=== PATIENT | male | born 1990 | race Caucasian/White ===

== ENCOUNTER 2019-06-01 09:32 | Emergency (ER) | payer SELFPAY ==
[2019-06-01] MEDS ORDERED: Fluorescein Sodium TOPICAL* 1 MG TEST STRIP OPHTHALMIC ONE (09:50)
[2019-06-01] MEDS ORDERED: Tetracaine 0.5% OPTH.SOL 4 ML* 1 DROP BTL BOTH EYES ONE (09:50)
--- NOTE | 2019-06-01 09:59 | UC ---
Eye Complaint HPI - HPI Summary HPI Summary: 29 yo male presents with LEFT eye injury. He tells me that on 05/28 while at work he was hit in the left eye by a low hanging tree branch. Had immediate blurry vision and later noticed dark red blood encompassing his entire iris. The hyphema resolved yesterday, but he continues to have blurry vision and a left sided headache with photophobia. He does not wear glasses or contacts. No double vision or pain with eye movement. - History of Current Complaint Stated Complaint: EYE INJURY Time Seen by Provider: 06/01/19 09:58 Hx Obtained From: Patient Onset/Duration: Sudden Onset Severity Initially: Moderate Severity Currently: Moderate Pain Intensity: 7 Pain Scale Used: 0-10 Numeric - Allergies/Home Medications Allergies/Adverse Reactions: Allergies Allergy/AdvReac Type Severity Reaction Status Date / Time No Known Allergies Allergy Verified 06/01/19 09:55 PMH/Surg Hx/FS Hx/Imm Hx - Additional Past Medical History Additional PMH: None - Surgical History Surgical History: None - Family History Known Family History: Positive: None Family History: R & n/C - Social History Lives: With Family Alcohol Use: None Substance Use Type: Heroin Smoking Status (MU): Never Smoked Tobacco Review of Systems All Other Systems Reviewed And Are Negative: No Constitutional: Positive: Negative Skin: Positive: Negative Eyes: Positive: Blurred Vision, Photophobia, Other - left eye pain Respiratory: Positive: Negative Cardiovascular: Positive: Negative Neurological: Positive: Negative Psychological: Positive: Negative Physical Exam - Summary Physical Exam Summary: GENERAL: WDWN. No pain distress. SKIN: No rashes, sores, lesions, or open wounds. HEENT: Head: AT/NC Eyes: EOM intact without pain. PERRLA. LEFT EYE: Mild scleral injection. No FBs appreciated. No hyphema or hypopyon appreciated. Fluorescein exam: 3mm oval shaped ?abrasion vs healing puncture to 9 o'clock position of cornea. No sulma sign Nose: NTTP maxillary and frontal sinus. NECK: Supple. Nontender. No lymphadenopathy. CHEST: No accessory muscle use. Breathing comfortably and in no distress. CV: Pulses intact. Cap refill <2seconds NEURO: Alert. PSYCH: Age appropriate behavior. Triage Information Reviewed: Yes Vital Signs: Vital Signs: Temp Pulse Resp BP Pulse Ox 97.9 F 70 18 111/73 100 06/01/19 09:56 06/01/19 09:56 06/01/19 09:56 06/01/19 09:56 06/01/19 09:56 Vital Signs Reviewed: Yes Procedures - Sedation Patient Received Moderate/Deep Sedation with Procedure: No Eye Complaint Course/Dx - Course Course Of Treatment: Given pt's continued symptoms with recent traumatic eye injury, I recommended he see an blue split trimmer. I called Dr. Briscoe's office and they can see him today at 1030. I discussed this with the pt and he will go there now for further evaluation - Differential Dx/Diagnosis Provider Diagnosis: Eye trauma Discharge ED - Sign-Out/Discharge Documenting (check all that apply): Patient Departure All imaging exams completed and their final reports reviewed: No Studies - Discharge Plan Condition: Stable Disposition: HOME Referrals: No Primary Care Phys,NOPCP [Primary Care Provider] - Danilo Briscoe MD [Medical Doctor] - 06/01/19 10:30 am Additional Instructions: Dr. Patel (eye doctor) will see you at 10:30am for further evaluation of your eye injury - Billing Disposition and Condition Condition: STABLE Disposition: Home - Attestation Statements Provider Attestation: I was available for consult chart reviewed chuy
[2019-06-01 10:03] VITALS: BP 111/73
== END 2019-06-01 10:29 | disposition home or self-care (01) ==
LOC: UCEAST 09:32
DX: S05.92XA Unspecified injury of left eye and orbit, initial encounter (principal); W22.8XXA Striking against or struck by other objects, initial encounter; Y92.9 Unspecified place or not applicable
CPT/HCPCS: 99211; A9270-GY; G0463